=== PATIENT | female | born 1970 | race Caucasian/White ===

== ENCOUNTER → 2023-09-01 15:51 | Outpatient (REF) | payer BC, SELFPAY | LOC: HWWDC 15:51 | PROVIDERS: ATTENDING PHYSICIAN Obstetrics & Gynecology; FAMILY PHYSICIAN Internal Medicine | DX: Z12.31 Encounter for screening mammogram for malignant neoplasm of breast (principal) | CPT/HCPCS: 77063; 77067 ==

== ENCOUNTER → 2024-02-29 06:17 | Day surgery (SDC) | payer BC, SELFPAY | LOC: GI 06:17 | PROVIDERS: ATTENDING PHYSICIAN Internal Medicine | DX: Z12.11 Encounter for screening for malignant neoplasm of colon (principal); K63.5 Polyp of colon; K57.30 Diverticulosis of large intestine without perforation or abscess without bleeding | CPT/HCPCS: 45380; 88305 ==

== ENCOUNTER → 2024-09-06 09:35 | Outpatient (REF) | payer BC, SELFPAY | LOC: HWWDC 09:35 | PROVIDERS: ATTENDING PHYSICIAN Internal Medicine; REFERRING PHYSICIAN Obstetrics & Gynecology | DX: Z12.31 Encounter for screening mammogram for malignant neoplasm of breast (principal) | CPT/HCPCS: 77063; 77067 ==

== ENCOUNTER → 2024-09-27 11:59 | Outpatient (REF) | payer BC, SELFPAY | LOC: RAD 11:59 | PROVIDERS: ATTENDING PHYSICIAN Internal Medicine | DX: R10.30 Lower abdominal pain, unspecified (principal) | CPT/HCPCS: 74177; Q9967 ==